=== PATIENT | female | born 1945 | race Caucasian/White ===

== ENCOUNTER 2020-12-02 02:02 | Emergency (ER) | payer MEDICARE, BC ==
--- NOTE | 2020-12-02 02:31 | ED Physician Documentation ---
PD HPI FEMALE - Stated complaint Stated Complaint: FEMALE , FEVER - Chief complaint Chief Complaint: Abd Pain - History obtained from History obtained from: Patient - History of Present Illness Timing - onset: Enter time (21:00) Timing - details: Abrupt onset Associated symptoms: Back pain, Dysuria, Hematuria. No: Fever Recently seen: Not recently seen - Additional information Additional information: patient has been having low back pain, predominantly left sided, for past few weeks and was prescribed tizanidine yesterday for this. She has taken three doses during the day today. Tonight at 9 PM she had urinary incontinence (which is new for her) and a few hours later she had gross hematuria with small clots. She has suprapubic burning pain with urination, and developed right-sided back pain earlier tonight. She is on warfarin for h/o PE. She says she has had ti zanidine before without adverse effects Review of Systems Constitutional: denies: Fever, Chills, Myalgias, Sweats Cardiac: reports: Reviewed and negative Respiratory: reports: Reviewed and negative GI: denies: Abdominal Pain (suprapubic burning pain but no abdominal pain per se), Nausea, Vomiting, Constipation, Diarrhea : reports: Dysuria, Hematuria Skin: denies: Rash Musculoskeletal: reports: Back pain PD PAST MEDICAL HISTORY - Past Medical History Past Medical History: Yes Cardiovascular: Hypertension, Pulmonary embolism - Past Surgical History Past Surgical History: Yes General: Appendectomy - Present Medications Home Medications: Ambulatory Orders Medication Instructions Recorded Confirmed Escitalopram [Lexapro] 20 mg PO DAILY 12/02/20 12/02/20 Fluticasone [Flonase] 1 spray 12/02/20 Hydrochlorothiazide 25 mg PO DAILY 12/02/20 12/02/20 Losartan [Cozaar] 50 mg PO DAILY 12/02/20 12/02/20 Pregabalin [Lyrica] 200 mg PO TID 12/02/20 12/02/20 Warfarin [Coumadin] 6 mg DAILY 12/02/20 12/02/20 cephALEXin [Keflex] 500 mg PO Q6H #28 12/02/20 - Allergies Allergies/Adverse Reactions: Allergies Allergy/AdvReac Type Severity Reaction Status Date / Time acetaminophen [From Vicodin] Allergy Unknown Verified 12/02/20 02:24 hydrocodone [From Vicodin] Allergy Unknown Verified 12/02/20 02:24 morphine Allergy Hallucinati Verified 12/02/20 02:24 ons Penicillins Allergy Rash Verified 12/02/20 02:23 Sulfa (Sulfonamide Allergy Rash Verified 12/02/20 02:23 Antibiotics) - Living Situation Living Arrangement: reports: At home PD ED PE NORMAL - Vitals Vital signs reviewed: Yes - General General: Alert and oriented X 3, No acute distress, Well developed/nourished - Cardiac Cardiac: RRR, No murmur - Respiratory Respiratory: No respiratory distress, Clear bilaterally - Abdomen Abdomen: Normal bowel sounds, Soft, Non tender, Non distended - Back Back: No CVA TTP - Derm Derm: Normal color, Warm and dry - Extremities Extremities: No edema Results - Vitals Vitals: Vital Signs - 24 hr 12/02/20 12/02/20 12/02/20 02:15 02:30 04:58 Temperature 36.9 C 36.9 C Heart Rate 76 76 69 Respiratory 20 20 15 Rate Blood Pressure 151/98 H 151/98 H 158/71 H O2 Saturation 96 96 96 12/02/20 06:07 Temperature 36.8 C Heart Rate 70 Respiratory 20 Rate Blood Pressure 158/71 H O2 Saturation 98 Oxygen O2 Source Room air - Labs Labs: Laboratory Tests 12/02/20 12/02/20 12/02/20 02:30 02:55 02:55 WBC 14.7 H RBC 4.01 L Hgb 11.8 L Hct 36.5 L MCV 91.0 MCH 29.4 MCHC 32.3 RDW 14.6 Plt Count 285 MPV 10.6 Neut # (Auto) 12.4 H Lymph # (Auto) 1.3 L [place] # (Auto) 0.8 Eos # (Auto) 0.1 Baso # (Auto) 0.1 Absolute Nucleated RBC 0.00 Nucleated RBC % 0.0 PT INR APTT Sodium 137 Potassium 3.4 L Chloride 99 L Carbon Dioxide 24 Anion Gap 14.0 H BUN 17 Creatinine 0.6 Estimated GFR (MDRD) 97 Glucose 136 H Calcium 9.3 Total Bilirubin 1.2 H AST 24 ALT 21 Alkaline Phosphatase 59 Total Protein 7.7 Albumin 4.6 Globulin 3.1 Albumin/Globulin Ratio 1.5 Lipase 60 H Urine Color RED/BLOODY Urine Clarity BLOODY Urine pH 7.0 Ur Specific [place] 1.015 Urine Protein Urine Glucose (UA) NEGATIVE Urine Ketones 15 H Urine Occult Blood LARGE H Urine Nitrite Urine Bilirubin NEGATIVE Urine Urobilinogen 4 H Ur Leukocyte Esterase Urine RBC TNTC H Urine WBC 0-3 Ur Squamous Epith Cells NONE SEEN Urine Bacteria Rare Ur Microscopic Review INDICATED Urine Culture Comments NOT INDICATED 12/02/20 05:15 WBC RBC Hgb Hct MCV MCH MCHC RDW Plt Count MPV Neut # (Auto) Lymph # (Auto) [place] # (Auto) Eos # (Auto) Baso # (Auto) Absolute Nucleated RBC Nucleated RBC % PT 26.3 H INR 2.5 H APTT 39.0 H Sodium Potassium Chloride Carbon Dioxide Anion Gap BUN Creatinine Estimated GFR (MDRD) Glucose Calcium Total Bilirubin AST ALT Alkaline Phosphatase Total Protein Albumin Globulin Albumin/Globulin Ratio Lipase Urine Color Urine Clarity Urine pH Ur Specific [place] Urine Protein Urine Glucose (UA) Urine Ketones Urine Occult Blood Urine Nitrite Urine Bilirubin Urine Urobilinogen Ur Leukocyte Esterase Urine RBC Urine WBC Ur Squamous Epith Cells Urine Bacteria Ur Microscopic Review Urine Culture Comments - Rads (name of study) CT A/P with IV contrast Radiology: Prelim report reviewed, See rad report PD MEDICAL DECISION MAKING - ED course Complexity details: reviewed results, re-evaluated patient, considered differential, d/w patient ED course: UA is grossly bloody; no WBC on microscopy but the gross hematuria could make results difficult to accurately interpret. The CT A/P demonstrate "urinary martin dder wall thickening and irregularity consistent with cystitis" per radiologist's interpretation. Will treat for hemorrhagic cystitis with rocephin IV in ED and rx for keflex. Her blood tests are reassuring (mild leukocytosis noted). Departure - Departure Disposition: 01 Home, Self Care Clinical Impression: Hemorrhagic cystitis Condition: Good Instructions: ED Hematuria, ED UTI Cystitis Female Follow-Up: Patricia Reese MD [Primary Care Provider] - (3-5 days) Prescriptions: cephALEXin [Keflex] 500 mg PO Q6H #28 Discharge Date/Time: 12/02/20 06:09
[2020-12-02 02:44] LABS: BILIRUBIN,URINE NEGATIVE (NEGATIVE); GLUCOSE, URINE (UA) NEGATIVE (NEGATIVE); KETONES,URINE (UA) 15 mg/dL (NEGATIVE); OCCULT BLOOD,URINE LARGE (NEGATIVE); UROBILINOGEN,URINE 4 E.U./dL (NORMAL)
[2020-12-02 02:52] LABS: CLARITY,URINE BLOODY (CLEAR)
[2020-12-02 02:53] LABS: BACTERIA,URINE Rare /HPF (None Seen); RBC,URINE TNTC /HPF (0-5); SQUAMOUS EPITHELIAL CELL,UR NONE SEEN (<= Few); WBC,URINE 0-3 /HPF (0-5)
[2020-12-02 03:03] LABS: BASOPHILS # (AUTO) 0.1 10^3/uL (0.0-0.1); BASOPHILS % (AUTO) 0.3 %; EOSINOPHILS # (AUTO) 0.1 10^3/uL (0.0-0.7); EOSINOPHILS % (AUTO) 0.5 %; HCT - HEMATOCRIT 36.5 % (37.0-47.0); HGB - HEMOGLOBIN 11.8 g/dL (12.0-16.0); LYMPHOCYTES # (AUTO) 1.3 10^3/uL (1.5-3.5); MEAN CORPUSCULAR HEMOGLOBIN 29.4 pg (27.0-31.0); MEAN CORPUSCULAR HGB CONC 32.3 g/dL (32.0-36.0); MEAN PLATELET VOLUME 10.6 fL (7.9-10.8); MONOCYTES # (AUTO) 0.8 10^3/uL (0.0-1.0); MONOCYTES % (AUTO) 5.4 %; NEUTROPHILS # (AUTO) 12.4 10^3/uL (1.5-6.6); NEUTROPHILS % (AUTO) 84.4 %; PLT - PLATELET COUNT 285 10^3/uL (130-450); RED BLOOD COUNT 4.01 10^6/uL (4.20-5.40); RED CELL DISTRIBUTION WIDTH 14.6 % (12.0-15.0); WHITE BLOOD COUNT 14.7 x10^3/uL (4.8-10.8)
[2020-12-02 03:19] LABS: ALBUMIN 4.6 g/dL (3.2-5.5); ALBUMIN/GLOBULIN RATIO 1.5 (1.0-2.2); BILIRUBIN,TOTAL 1.2 mg/dL (0.2-1.0); CALCIUM 9.3 mg/dL (8.5-10.3); CREATININE 0.6 mg/dL (0.4-1.0); POTASSIUM 3.4 mmol/L (3.5-5.0); TOTAL PROTEIN 7.7 g/dL (6.7-8.2)
[2020-12-02] MEDS ORDERED: IOVERSOL 320 100 ML VIAL IVP ONE ×2 (03:28→03:59)
[2020-12-02] MEDS ORDERED: cefTRIAXone 1 GM in SODIUM CHLORIDE 0.9% MINIBAG 100 ML IV STA (05:01)
[2020-12-02 05:06] VITALS: BP 158/71
[2020-12-02] MEDS ORDERED: cefTRIAXone 1 GM VIAL ONE (05:17)
[2020-12-02 05:39] LABS: INR 2.5 (0.8-1.2); PT - PROTHROMBIN TIME 26.3 secs (9.9-12.6)
--- NOTE | 2020-12-02 09:00 | CT Report ---
PROCEDURE: Abdomen/Pelvis W INDICATIONS: hematuria, flank pain CONTRAST: IV CONTRAST: Optiray 320 ml: 100 PO CONTRAST: *NO PO CONTRAST TECHNIQUE: After the administration of IV contrast, 5 mm thick sections acquired from the diaphragms to the symp hysis. 5 mm thick coronal and sagittal reformats were acquired. For radiation dose reduction, the f ollowing was used: automated exposure control, adjustment of mA and/or kV according to patient size. COMPARISON: None. FINDINGS: ABDOMEN: Scattered subsegmental scarring/atelectasis. No acute consolidation. Hepatic steatosis. Hepatic foci statistically representing cysts although technically indeterminate d ue to small size. Spleen: Normal Gallbladder: Negative Bile ducts: Normal Pancreas: Normal Adrenals: Normal Bilateral cortical atrophy. No hydronephrosis. Subcentimeter renal foci which are statistically cysts , however too to characterize accurately and therefore technically indeterminate. Bowel loops: Normal. Colonic diverticulosis incidentally noted without evidence of acute inflammation . The appendix is not visualized. No free fluid or air. Abdominal nodes: Normal Aorta: Normal IVC: Normal No ventral hernias PELVIS: Bladder: There is circumferential mural thickening of the bladder with pericystic inflammatory change s. Pelvic nodes: Normal Groin: Normal Chronic appearing L2 compression fracture with associated moderate bony canal narrowing. Diffuse spondylitic changes and facet arthropathy. IMPRESSION: No definite hydronephrosis or urolithiasis. However, marked circumferential mural thickening of the b ladder in keeping with acute cystitis. Please correlate clinically and with urinalysis data. Additional chronic and incidental findings as above. Findings are concordant with the preliminary study interpretation provided at the time of the study. Reviewed by: Victor Manuel Lee MD on 12/02/2020 8:59 AM PDT Approved by: Victor Manuel Lee MD on 12/02/2020 8:59 AM PDT Station ID: [id number]
== END 2020-12-02 06:09 | disposition home or self-care (01) ==
LOC: ED 02:02
DX: N30.91 Cystitis, unspecified with hematuria (principal); Z86.711 Personal history of pulmonary embolism; Z79.01 Long term (current) use of anticoagulants; I10 Essential (primary) hypertension
CPT/HCPCS: 36415; 74177; 80053; 81001; 83690; 85025; 85610; 85730; 96365; 99284; Q9967; 81003; 87086

== ENCOUNTER 2021-01-06 09:40 | Outpatient (CLI) | payer MEDICARE, BC | END 2021-01-06 09:41 | disposition home or self-care (01) | LOC: LAB 09:40 | PROVIDERS: ATTEND Internal Medicine | DX: Z86.711 Personal history of pulmonary embolism (principal) | CPT/HCPCS: 36416; 85610 ==

== ENCOUNTER 2021-01-11 11:07 | Outpatient (CLI) | payer MEDICARE, BC | END 2021-01-11 11:08 | disposition home or self-care (01) | LOC: LAB 11:07 | PROVIDERS: ATTEND Internal Medicine | DX: Z86.711 Personal history of pulmonary embolism (principal) | CPT/HCPCS: 36416; 85610 ==

== ENCOUNTER 2021-01-25 07:26 | Outpatient (CLI) | payer MEDICARE, BC | END 2021-01-25 07:27 | disposition home or self-care (01) | LOC: LAB 07:26 | PROVIDERS: ATTEND Internal Medicine | DX: Z86.711 Personal history of pulmonary embolism (principal) | CPT/HCPCS: 36416; 85610 ==

== ENCOUNTER 2021-03-02 07:26 | Outpatient (CLI) | payer MEDICARE, BC | END 2021-03-02 07:27 | disposition home or self-care (01) | LOC: LAB 07:26 | PROVIDERS: ATTEND Internal Medicine | DX: Z86.711 Personal history of pulmonary embolism (principal) | CPT/HCPCS: 36416; 85610 ==

== ENCOUNTER 2021-03-15 07:30 | Outpatient (CLI) | payer MEDICARE, BC | END 2021-03-15 07:31 | disposition home or self-care (01) | LOC: LAB 07:30 | PROVIDERS: ATTEND Internal Medicine | DX: Z86.711 Personal history of pulmonary embolism (principal) | CPT/HCPCS: 36416; 85610 ==

== ENCOUNTER 2021-04-19 07:20 | Outpatient (CLI) | payer MEDICARE, BC | END 2021-04-19 07:21 | disposition home or self-care (01) | LOC: LAB 07:20 | PROVIDERS: ATTEND Internal Medicine | DX: Z86.711 Personal history of pulmonary embolism (principal) | CPT/HCPCS: 36416; 85610 ==

== ENCOUNTER 2021-06-01 07:30 | Outpatient (CLI) | payer MEDICARE, BC | END 2021-06-01 07:31 | disposition home or self-care (01) | LOC: LAB 07:30 | PROVIDERS: ATTEND Internal Medicine | DX: Z86.711 Personal history of pulmonary embolism (principal) | CPT/HCPCS: 36416; 85610 ==

== ENCOUNTER 2021-06-27 07:16 | Outpatient (CLI) | payer MEDICARE, BC | END 2021-06-27 07:17 | disposition home or self-care (01) | LOC: LAB 07:16 | PROVIDERS: ATTEND Internal Medicine | DX: Z86.711 Personal history of pulmonary embolism (principal) | CPT/HCPCS: 36416; 85610 ==

== ENCOUNTER 2021-07-31 07:25 | Outpatient (CLI) | payer MEDICARE, BC | END 2021-07-31 07:26 | disposition home or self-care (01) | LOC: LAB 07:25 | PROVIDERS: ATTEND Internal Medicine | DX: Z86.711 Personal history of pulmonary embolism (principal) | CPT/HCPCS: 36416; 85610 ==

== ENCOUNTER 2021-08-24 10:30 | Outpatient (CLI) | payer MEDICARE, BC | END 2021-08-24 10:31 | disposition home or self-care (01) | LOC: LAB 10:30 | PROVIDERS: ATTEND Internal Medicine | DX: Z86.711 Personal history of pulmonary embolism (principal) | CPT/HCPCS: 36416; 85610 ==

== ENCOUNTER 2021-09-25 07:30 | Outpatient (CLI) | payer MEDICARE, BC | END 2021-09-25 07:31 | disposition home or self-care (01) | LOC: LAB 07:30 | PROVIDERS: ATTEND Internal Medicine | DX: Z86.711 Personal history of pulmonary embolism (principal) | CPT/HCPCS: 36416; 85610 ==

== ENCOUNTER 2021-10-02 07:29 | Outpatient (CLI) | payer MEDICARE, BC | END 2021-10-02 07:30 | disposition home or self-care (01) | LOC: LAB 07:29 | PROVIDERS: ATTEND Internal Medicine | DX: Z86.711 Personal history of pulmonary embolism (principal) | CPT/HCPCS: 36416; 85610 ==

== ENCOUNTER 2021-10-04 07:22 | Outpatient (CLI) | payer MEDICARE, BC | END 2021-10-04 07:23 | disposition home or self-care (01) | LOC: LAB 07:22 | PROVIDERS: ATTEND Internal Medicine | DX: Z86.711 Personal history of pulmonary embolism (principal) | CPT/HCPCS: 36416; 85610 ==

== ENCOUNTER 2021-10-09 07:26 | Outpatient (CLI) | payer MEDICARE, BC | END 2021-10-09 07:27 | disposition home or self-care (01) | LOC: LAB 07:26 | PROVIDERS: ATTEND Internal Medicine | DX: Z86.711 Personal history of pulmonary embolism (principal) | CPT/HCPCS: 36416; 85610 ==

== ENCOUNTER 2021-10-13 08:00 | Outpatient (CLI) | payer MEDICARE, BC | END 2021-10-13 23:59 | disposition home or self-care (01) | LOC: LAB.S 08:00 | PROVIDERS: ATTEND Physician Assistant Medical | DX: E11.9 Type 2 diabetes mellitus without complications (principal) | CPT/HCPCS: 82962 ==

== ENCOUNTER 2021-10-13 08:00 | Outpatient (CLI) | payer MEDICARE, BC ==
--- NOTE | 2021-10-13 12:31 | XRAY Report ---
PROCEDURE: Chest 2 View X-Ray INDICATIONS: SHORTNESS OF BREATH TECHNIQUE: 2 view(s) of the chest. COMPARISON: None. FINDINGS: Surgical changes and devices: None. Lungs and pleura: No pleural effusions or pneumothorax. Lungs are clear. Mediastinum: Mediastinal contours are normal. Heart size is normal. Bones and chest wall: No suspicious bony abnormalities. Soft tissues appear unremarkable. IMPRESSION: No acute cardiopulmonary process demonstrated radiographically. Reviewed by: German Stephens MD on 10/13/2021 12:29 PM PST Approved by: German Stephens MD on 10/13/2021 12:29 PM [facility] Station ID: [id number]
[2021-10-13 15:45] LABS: BASOPHILS # (AUTO) 0.1 10^3/uL (0.0-0.1); BASOPHILS % (AUTO) 0.4 %; EOSINOPHILS % (AUTO) 0.2 %; HCT - HEMATOCRIT 40.3 % (37.0-47.0); HGB - HEMOGLOBIN 13.1 g/dL (12.0-16.0); LYMPHOCYTES # (AUTO) 1.5 10^3/uL (1.5-3.5); LYMPHOCYTES % (AUTO) 11.1 %; MEAN CORPUSCULAR HEMOGLOBIN 30.3 pg (27.0-31.0); MEAN CORPUSCULAR HGB CONC 32.5 g/dL (32.0-36.0); MEAN CORPUSCULAR VOLUME 93.1 fL (81.0-99.0); MEAN PLATELET VOLUME 11.4 fL (7.9-10.8); MONOCYTES # (AUTO) 0.9 10^3/uL (0.0-1.0); MONOCYTES % (AUTO) 6.6 %; NEUTROPHILS # (AUTO) 10.7 10^3/uL (1.5-6.6); NEUTROPHILS % (AUTO) 81.3 %; PLT - PLATELET COUNT 354 10^3/uL (130-450); RED BLOOD COUNT 4.33 10^6/uL (4.20-5.40); RED CELL DISTRIBUTION WIDTH 13.2 % (12.0-15.0); WHITE BLOOD COUNT 13.2 x10^3/uL (4.8-10.8)
[2021-10-13 16:25] LABS: ALBUMIN 4.7 g/dL (3.2-5.5); ALBUMIN/GLOBULIN RATIO 1.4 (1.0-2.2); BILIRUBIN,TOTAL 0.6 mg/dL (0.2-1.0); CALCIUM 9.5 mg/dL (8.5-10.3); CREATININE 0.6 mg/dL (0.4-1.0); POTASSIUM 3.4 mmol/L (3.5-5.0)
[2021-10-13 17:49] LABS: BILIRUBIN,URINE NEGATIVE (NEGATIVE); GLUCOSE, URINE (UA) NEGATIVE (NEGATIVE); KETONES,URINE (UA) NEGATIVE (NEGATIVE); LEUKOCYTE ESTERASE, URINE NEGATIVE (NEGATIVE); NITRITE,URINE NEGATIVE (NEGATIVE); OCCULT BLOOD,URINE SMALL (NEGATIVE); PROTEIN,URINE NEGATIVE (NEGATIVE); UROBILINOGEN,URINE 0.2 (NORMAL) E.U./dL (NORMAL)
[2021-10-13 17:52] LABS: CLARITY,URINE CLEAR (CLEAR)
[2021-10-13 20:11] LABS: BACTERIA,URINE Rare /HPF (None Seen); RBC,URINE 0-5 /HPF (0-5); SQUAMOUS EPITHELIAL CELL,UR RARE Squamous (<= Few); WBC,URINE 0-3 /HPF (0-5)
== END 2021-10-13 23:59 | disposition home or self-care (01) ==
LOC: DI.S 08:00
PROVIDERS: ATTEND Physician Assistant Medical
DX: R06.02 Shortness of breath (principal); E11.9 Type 2 diabetes mellitus without complications; R35.0 Frequency of micturition; Z79.01 Long term (current) use of anticoagulants; Z86.711 Personal history of pulmonary embolism; R60.0 Localized edema; I10 Essential (primary) hypertension; I48.21 Permanent atrial fibrillation; R06.09 Other forms of dyspnea
CPT/HCPCS: 36415; 80053; 81001; 82962; 85025; 85379; 85610; 87086

== ENCOUNTER 2021-10-31 11:50 | Outpatient (CLI) | payer MEDICARE, BC | END 2021-10-31 11:51 | disposition home or self-care (01) | LOC: LAB.S 11:50 | PROVIDERS: ATTEND Internal Medicine | DX: Z86.711 Personal history of pulmonary embolism (principal) | CPT/HCPCS: 36416; 85610 ==

== ENCOUNTER 2021-12-26 10:18 | Outpatient (CLI) | payer MEDICARE, BC | END 2021-12-26 10:19 | disposition home or self-care (01) | LOC: LAB.S 10:18 | PROVIDERS: ATTEND Internal Medicine | DX: Z86.711 Personal history of pulmonary embolism (principal) | CPT/HCPCS: 36416; 85610 ==

== ENCOUNTER 2022-01-09 12:32 | Outpatient (CLI) | payer MEDICARE, BC | END 2022-01-09 12:33 | disposition home or self-care (01) | LOC: LAB.S 12:32 | PROVIDERS: ATTEND Internal Medicine | DX: Z86.711 Personal history of pulmonary embolism (principal) | CPT/HCPCS: 36416; 85610 ==

== ENCOUNTER 2022-01-23 12:05 | Outpatient (CLI) | payer MEDICARE, BC | END 2022-01-23 12:06 | disposition home or self-care (01) | LOC: LAB.S 12:05 | PROVIDERS: ATTEND Internal Medicine | DX: Z86.711 Personal history of pulmonary embolism (principal) | CPT/HCPCS: 36416; 85610 ==

== ENCOUNTER 2022-02-21 11:02 | Outpatient (CLI) | payer MEDICARE, BC | END 2022-02-21 11:03 | disposition home or self-care (01) | LOC: LAB.S 11:02 | PROVIDERS: ATTEND Internal Medicine | DX: Z86.711 Personal history of pulmonary embolism (principal) | CPT/HCPCS: 36416; 85610 ==

== ENCOUNTER 2022-03-07 11:55 | Outpatient (CLI) | payer MEDICARE, BC | END 2022-03-07 11:56 | disposition home or self-care (01) | LOC: LAB.S 11:55 | PROVIDERS: ATTEND Internal Medicine | DX: Z86.711 Personal history of pulmonary embolism (principal) | CPT/HCPCS: 36416; 85610 ==

== ENCOUNTER 2022-03-20 12:13 | Outpatient (CLI) | payer MEDICARE, BC | END 2022-03-20 12:14 | disposition home or self-care (01) | LOC: LAB.S 12:13 | PROVIDERS: ATTEND Internal Medicine | DX: Z86.711 Personal history of pulmonary embolism (principal) | CPT/HCPCS: 36416; 85610 ==